=== PATIENT | female | born 1955 | race Caucasian/White ===

== ENCOUNTER 2018-07-28 05:30 | Day surgery (SDC) | payer OTHER ==
[~2018-07-28 05:30] MED LIST: NORVASC2.5 M1 PO; SYNTROID PO; ZANTAC300 MG PO
[2018-07-28] MEDS ORDERED: TRAM1TAB98 PO (10:04)
[2018-07-28] MEDS ORDERED: DUI500 PO (10:04)
== END 2018-07-28 15:00 | disposition home or self-care (01) ==
LOC: CIR.AMB 05:30
DX: M23.322 Other meniscus derangements, posterior horn of medial meniscus, left knee (principal); M17.12 Unilateral primary osteoarthritis, left knee; M65.842 Other synovitis and tenosynovitis, left hand